=== PATIENT | female | born 1960 ===

== ENCOUNTER 2018-09-01 09:01 | Outpatient (CLI) | payer OTHER ==
[~2018-09-01] VITALS: Ht 162.6 cm; Wt 72.6 kg
== END 2018-09-01 09:15 | disposition home or self-care (01) ==
LOC: OFIC 805 09:01
DX: K21.9 Gastro-esophageal reflux disease without esophagitis (principal); R49.0 Dysphonia; S19.83XA Other specified injuries of vocal cord, initial encounter

== ENCOUNTER 2018-09-10 08:47 | Outpatient (CLI) | payer OTHER ==
[~2018-09-10] VITALS: Ht 152.4 cm; Wt 72.6 kg
== END 2018-09-10 09:00 | disposition home or self-care (01) ==
LOC: OFIC 805 08:47
DX: K21.9 Gastro-esophageal reflux disease without esophagitis (principal); R49.0 Dysphonia; J38.2 Nodules of vocal cords

== ENCOUNTER 2018-09-17 15:25 | Outpatient (CLI) | payer OTHER ==
[~2018-09-17] VITALS: Ht 152.4 cm; Wt 72.6 kg
== END 2018-09-17 15:40 | disposition home or self-care (01) ==
LOC: OFIC 805 15:25
DX: K21.9 Gastro-esophageal reflux disease without esophagitis (principal); R49.0 Dysphonia